=== PATIENT | male | born 2000 | race African-American/Black ===

== ENCOUNTER 2023-04-17 15:19 | Emergency (ER) | payer OTHER ==
[~2023-04-17] VITALS: Ht 185.4 cm; Wt 81.3 kg
[2023-04-17 15:20] VITALS: BP 140/79; TEMP 98.3; O2SAT 100
[2023-04-17 16:54] LABS: APPEARANCE, URINE HAZY (CLEAR); BACTERIA, URINE AUTO NEGATIVE (NEGATIVE); BILIRUBIN, URINE AUTO NEGATIVE (NEGATIVE); BLOOD, URINE BLOOD NEGATIVE (NEGATIVE); COLOR, URINE YELLOW (YELLOW); GLUCOSE, URINE (UA) AUTO NEGATIVE (NEGATIVE); KETONE, URINE AUTO NEGATIVE (NEGATIVE); LEUKOCYTE ESTERASE, URINE AUTO 2+ (NEGATIVE); MUCUS, URINE SMALL (NEGATIVE); NITRITE, URINE AUTO NEGATIVE (NEGATIVE); PROTEIN, URINE AUTO NEGATIVE (NEGATIVE); RBC, URINE AUTO 6 /HPF (0-3); SPECIFIC GRAVITY URINE AUTO 1.019 (1.002-1.035); SQUAMOUS EPITHELIAL CELL UR AU 0 /HPF (0-6); UROBILINOGEN, URINE AUTO 0.2 mg/dL (0.0-2.0); WBC, URINE AUTO 93 /HPF (0-3)
[2023-04-17] MEDS ORDERED: DOXY-443 PO (16:58)
[2023-04-17 17:24] LABS: Trichomonas vaginalis (AMP) NOT DETECTED (NEGATIVE)
[2023-04-17] MEDS: LIDOCAINE 1% SDV 5ML VIAL DILUENT ONE (17:36)
[2023-04-17] MEDS: DOXYCYCLINE HYCLATE 100MG TABLET PO ONE (17:36)
[2023-04-17] MEDS: cefTRIAXone 500MG VIAL IM ONE (17:41)
[2023-04-17 17:48] LABS: GC DNA AMPLIFICATION POSITIVE (NEGATIVE)
== END 2023-04-17 18:03 | disposition home or self-care (01) ==
LOC: M ED 15:19
DX: N34.1 Nonspecific urethritis (principal); Z79.2 Long term (current) use of antibiotics
CPT/HCPCS: 81001; 87661; 87810; 87850; 96372; 99282; J0696

== ENCOUNTER 2023-05-29 10:36 | Emergency (ER) | payer OTHER ==
[~2023-05-29] VITALS: Ht 193 cm; Wt 82.5 kg
[~2023-05-29 10:36] MED LIST: DOXY-443 PO
[2023-05-29 10:37] VITALS: BP 139/64; TEMP 98.7; O2SAT 98
[2023-05-29 12:06] LABS: HEPATITIS B SURFACE ANTIBODY POSITIVE (POSITIVE)
[2023-05-29 12:52] LABS: Trichomonas vaginalis (AMP) NOT DETECTED (NEGATIVE)
[2023-05-29 13:16] LABS: GC DNA AMPLIFICATION NEGATIVE (NEGATIVE)
== END 2023-05-29 11:49 | disposition home or self-care (01) ==
LOC: M ED 10:36
DX: Z11.3 Encounter for screening for infections with a predominantly sexual mode of transmission (principal)